=== PATIENT | female | born 1995 | race Two or more races ===

== ENCOUNTER 2022-08-06 12:12 | Outpatient (CLI) | payer OTHER ==
--- NOTE | 2022-08-06 16:47 | XRAY Report ---
PROCEDURE: Arthrogram Needle Placement INDICATIONS: LEFT SHOULDER PAIN FLUOROSCOPY TIME: 0.2 TECHNIQUE: The indications, alternatives, benefits, risks, and complications of the procedure were explained to the patient. Written informed consent was obtained and placed in the chart. The shoulder was examin ed fluoroscopically and a site for needle placement chosen for entry into the glenohumeral joint from an anterior approach. The skin was prepped and draped in the usual fashion, and 1% lidocaine infilt rated from skin down to joint capsule. A spinal needle was inserted into the glenohumeral joint, and a small amount of iodinated contrast media injected to confirm intra-articular placement of the need le tip. This was followed by approximately 12 mL dilute solution of a gadolinium containing MR contr ast agent. The needle was removed and a dressing was applied. The patient was given postprocedural instructions and sent to the MR suite for MR imaging. FINDINGS: A single fluoroscopic spot image demonstrates intra-articular location of injected iodinated contrast . IMPRESSION: Successful fluoroscopically guided administration of dilute Gadolinium solution into the shoulder billy pringle for MR arthrogram. Reviewed by: Ashely Navarro MD on 08/06/2022 4:45 PM PDT Approved by: Ashely Navarro MD on 08/06/2022 4:45 PM PDT Station ID: [id number]
--- NOTE | 2022-08-06 21:04 | MRI Report ---
PROCEDURE: ARTHROGRAM SHOULDER - LT INDICATIONS: LEFT SHOULDER PAIN TECHNIQUE: After the administration of 12 mL of dilute intra-articular Gadolinium contrast, oblique coronal T1 a nd T2 spin echo with fat saturation, oblique sagittal T1 spin echo with and without fat saturation, o blique sagittal T2 fast spin echo with fat saturation, axial T1 spin echo with fat saturation through the shoulder. COMPARISON: None. FINDINGS: Image quality: Excellent. Rotator cuff: Low-grade articular and bursal surface partial-thickness tear involving distal supraspi natus at its insertion on humeral head is seen extending to musculotendinous junction. Low-grade ryan cular surface partial-thickness tear involving distal infraspinatus at its insertion on humeral head is also seen. Distal subscapularis is intact. No full-thickness rotator cuff tendon rupture. No rota tor cuff muscle atrophy on sagittal images. Bones and bursae: No bone marrow contusions or fractures. No acromioclavicular joint degeneration. The acromion demonstrates conventional anatomy, without an os acromiale. Capsule and soft tissues: There is subtle fraying of superior anterior labrum with questionable contr ast extension concerning for very subtle superior anterior labral tear at 12 to 1:00 position. There is subtle signal abnormality and contrast extension in anterior inferior labrum at 5 to 6:00 position . The glenohumeral ligaments appears intact. The long head of the biceps tendon demonstrates normal location and morphology. The rotator interval appears normal, without fibrosis. The coracohumeral l igament is of normal thickness. No intra-articular bodies. IMPRESSION: 1. Low-grade articular and bursal surface partial-thickness tear involving distal supraspinatus. Low- grade articular surface partial-thickness tear involving distal infraspinatus. No full-thickness rota tor cuff tendon rupture. No muscle atrophy. 2. No marrow edema. No fracture or dislocation. No loose bodies. 3. Suggestion of subtle superior anterior labral tear at 12 to 1:00 position an anterior inferior lab ral tear at 5 to 6:00 position. Reviewed by: Vincenzo Yeboah MD on 08/06/2022 9:03 PM PDT Approved by: Vincenzo Yeboah MD on 08/06/2022 9:03 PM PDT Station ID: [id number]
== END 2022-08-06 12:13 | disposition home or self-care (01) ==
LOC: DI 12:12
DX: M75.112 Incomplete rotator cuff tear or rupture of left shoulder, not specified as traumatic (principal)
CPT/HCPCS: 23350; 73222; 77002; A9585; Q9966